=== PATIENT | female | born 1995 | race Caucasian/White ===

== ENCOUNTER 2018-07-08 10:34 | Emergency (ER) | payer MEDICAID ==
[~2018-07-08] VITALS: Ht 1571.9 cm; Wt 75.0 kg
[2018-07-08] MEDS ORDERED: dexamethasone sod phosphate 10mg/ml inj IV STA (11:29)
[2018-07-08] MEDS ORDERED: normal saline 1000ML IV soln IVB ONE ×3 (11:30→13:15)
[2018-07-08] MEDS ORDERED: diphenhydrAMINE 50 mg/ml inj IV ONE (11:30)
[2018-07-08] MEDS ORDERED: metoclopramide 5 mg/ml inj IV ONE (11:30)
[2018-07-08 12:21] LABS: BASOPHILS # (AUTO) 0.2 X10'3 (0-0.2); BASOPHILS % (AUTO) 2.7 % (0-1); EOSINOPHILS # (AUTO) 0.3 X10'3 (0-0.9); EOSINOPHILS % (AUTO) 4.2 % (0-6); HEMOGLOBIN 14.7 g/dl (12.0-16.0); LYMPHOCYTES # (AUTO) 0.4 X10'3 (1.1-4.8); LYMPHOCYTES % (AUTO) 5.9 % (21-51); MEAN CORPUSCULAR HEMOGLOBIN 32.6 PG (27.0-31.0); MEAN CORPUSCULAR HGB CONC 34.3 % (33.0-36.5); MEAN CORPUSCULAR VOLUME 95.1 FL (78-98); MEAN PLATELET VOLUME 9.3 FL (7.4-10.4); MONOCYTES # (AUTO) 0.7 X10'3 (0-0.9); MONOCYTES % (AUTO) 11.1 % (2-12); NEUTROPHILS # (AUTO) 4.5 X10'3 (1.8-7.7); NEUTROPHILS % (AUTO) 76.1 % (42-75); PLATELET COUNT 106 X10'3 (140-440); RED BLOOD COUNT 4.52 X10'6 (4.20-5.60); RED CELL DISTRIBUTION WIDTH 13.9 % (11.5-14.5)
[2018-07-08] MEDS ORDERED: LORazepam 2 mg/ml vial IV ONE (12:30)
[2018-07-08 12:36] LABS: ALANINE AMINOTRANSFERASE 62 U/L (12-78); ALBUMIN 4.3 G/DL (3.4-5.0); ALBUMIN/GLOBULIN RATIO 1.5 (1.1-1.5); ALKALINE PHOSPHATASE 68 IU/L (46-116); ANION GAP 7 (8-16); ASPARTATE AMINO TRANSFERASE 43 U/L (10-37); BILIRUBIN,TOTAL 0.5 MG/DL (0.1-1.0); BLOOD UREA NITROGEN 16 MG/DL (7-18); BUN/CREATININE RATIO 19.5 (6.6-38.0); CALCIUM 9.2 MG/DL (8.5-10.1); CHLORIDE 102 MMOL/L (99-107); CREATININE 0.82 MG/DL (0.40-0.90); GLUCOSE 78 MG/DL (70-104); LIPASE 108 U/L (73-393); POTASSIUM 3.4 MMOL/L (3.5-5.1); SODIUM 139 MMOL/L (135-145); TOTAL PROTEIN 7.1 G/DL (6.4-8.2); eGFR 87 ML/MIN
[2018-07-08 13:59] LABS: CLARITY,URINE SLIGHTLY CLOUDY (Clear); COLOR,URINE YELLOW (Yellow); GLUCOSE, URINE NEGATIVE (Neg); KETONES,URINE 15 mg/dl (Neg); LEUKOCYTE ESTERASE ,URINE NEGATIVE (Neg); NITRITES, URINE NEGATIVE (Neg); OCCULT BLOOD,URINE NEGATIVE (Neg); PROTEIN,URINE NEGATIVE (Neg); UROBILINOGEN,URINE 0.2 E.U/dL (0.2-1.0)
[2018-07-08 14:01] LABS: UA COLLECTION TYPE CLN CATCH MIDSTREAM
[2018-07-08 14:15] LABS: BACTERIA,URINE FEW /HPF (Neg); RBC,URINE NONE SEEN /HPF (0-2); SQUAMOUS EPITHELIAL CELL,UR MODERATE /LPF (FEW); WBC,URINE 0-4 /HPF (0-4)
[2018-07-08 14:53] VITALS: BP 122/73
== END 2018-07-08 14:56 | disposition home or self-care (01) ==
LOC: ER 10:34
DX: E86.0 Dehydration (principal); R11.2 Nausea with vomiting, unspecified; Z88.2 Allergy status to sulfonamides; Z88.1 Allergy status to other antibiotic agents
CPT/HCPCS: 36415; 71045; 80053; 81001; 82948; 83690; 85025; 96361; 96374; 96375; 99285; J1100; J1200; J2765; J7030

== ENCOUNTER 2018-11-11 12:19 | Emergency (ER) | payer MEDICAID ==
[~2018-11-11] VITALS: Ht 160 cm; Wt 75.0 kg
[2018-11-11 12:45] LABS: BASOPHILS % (AUTO) 0 % (0-1); EOSINOPHILS # (AUTO) 0.1 X10'3 (0-0.9); EOSINOPHILS % (AUTO) 1.4 % (0-6); HEMATOCRIT 42.7 % (35.0-45.0); HEMOGLOBIN 14.6 g/dl (12.0-16.0); LYMPHOCYTES # (AUTO) 0.2 X10'3 (1.1-4.8); LYMPHOCYTES % (AUTO) 3.8 % (21-51); MEAN CORPUSCULAR HEMOGLOBIN 34.1 PG (27.0-31.0); MEAN CORPUSCULAR HGB CONC 34.1 % (33.0-36.5); MEAN CORPUSCULAR VOLUME 99.8 FL (78-98); MEAN PLATELET VOLUME 8.9 FL (7.4-10.4); MONOCYTES # (AUTO) 0.4 X10'3 (0-0.9); MONOCYTES % (AUTO) 8.5 % (2-12); NEUTROPHILS % (AUTO) 86.3 % (42-75); PLATELET COUNT 116 X10'3 (140-440); RED BLOOD COUNT 4.27 X10'6 (4.20-5.60); RED CELL DISTRIBUTION WIDTH 14.6 % (11.5-14.5); WHITE BLOOD COUNT 4.6 X10'3 (4.5-11.0)
[2018-11-11 13:00] LABS: ALANINE AMINOTRANSFERASE 64 U/L (12-78); ALBUMIN 4.5 G/DL (3.4-5.0); ALBUMIN/GLOBULIN RATIO 1.6 (1.1-1.5); ALKALINE PHOSPHATASE 63 IU/L (46-116); ANION GAP 13 (8-16); ASPARTATE AMINO TRANSFERASE 59 U/L (10-37); BILIRUBIN,TOTAL 0.5 MG/DL (0.1-1.0); BLOOD UREA NITROGEN 12 MG/DL (7-18); BUN/CREATININE RATIO 14.5 (6.6-38.0); CALCIUM 9.3 MG/DL (8.5-10.1); CHLORIDE 101 MMOL/L (99-107); CREATININE 0.83 MG/DL (0.40-0.90); GLUCOSE 96 MG/DL (70-104); INR 1.1 INR; PARTIAL THROMBOPLASTIN TIME 23 SECONDS (22-32); POTASSIUM 3.3 MMOL/L (3.5-5.1); PROTHROMBIN TIME 10.7 SECONDS (9.0-12.0); SODIUM 142 MMOL/L (135-145); TOTAL CARBON DIOXIDE 28.4 MMOL/L (24-32); TOTAL PROTEIN 7.4 G/DL (6.4-8.2); eGFR 85 ML/MIN
[2018-11-11] MEDS ORDERED: ondansetron 4mg rapidly disintigrating tab PO ONE (13:30)
[2018-11-11 14:06] VITALS: BP 112/67
== END 2018-11-11 14:05 | disposition home or self-care (01) ==
LOC: ER 12:20
DX: M32.9 Systemic lupus erythematosus, unspecified (principal); Z88.2 Allergy status to sulfonamides; Z88.8 Allergy status to other drugs, medicaments and biological substances
CPT/HCPCS: 36415; 71045; 80053; 84484; 85025; 85610; 85730; 93005; 99284

== ENCOUNTER 2019-09-25 10:09 | Emergency (ER) | payer MEDICAID ==
[~2019-09-25] VITALS: Ht 160 cm; Wt 74.5 kg
[2019-09-25 10:15] VITALS: BP 125/80
[2019-09-25 10:56] LABS: BASOPHILS % (AUTO) 0.9 % (0-1); EOSINOPHILS # (AUTO) 0.1 X10'3 (0-0.9); EOSINOPHILS % (AUTO) 2.7 % (0-6); HEMATOCRIT 41.3 % (35.0-45.0); LYMPHOCYTES # (AUTO) 0.3 X10'3 (1.1-4.8); LYMPHOCYTES % (AUTO) 10.2 % (21-51); MEAN CORPUSCULAR HGB CONC 33.9 g/dL (33.0-36.5); MEAN CORPUSCULAR VOLUME 103.3 FL (78-98); MEAN PLATELET VOLUME 9.4 FL (7.4-10.4); MONOCYTES # (AUTO) 0.3 X10'3 (0-0.9); MONOCYTES % (AUTO) 10.9 % (2-12); NEUTROPHILS # (AUTO) 2.1 X10'3 (1.8-7.7); NEUTROPHILS % (AUTO) 75.3 % (42-75); PLATELET COUNT 109 X10'3 (140-440); RED CELL DISTRIBUTION WIDTH 13.3 % (11.5-14.5); WHITE BLOOD COUNT 2.8 X10'3 (4.5-11.0)
[2019-09-25 11:11] LABS: ALANINE AMINOTRANSFERASE 46 U/L (12-78); ALBUMIN 4.2 G/DL (3.4-5.0); ALBUMIN/GLOBULIN RATIO 1.4 (1.1-1.5); ALKALINE PHOSPHATASE 58 IU/L (46-116); ANION GAP 6 (8-16); ASPARTATE AMINO TRANSFERASE 36 U/L (10-37); BILIRUBIN,TOTAL 0.3 MG/DL (0.1-1.0); BLOOD UREA NITROGEN 12 MG/DL (7-18); BUN/CREATININE RATIO 18.2 (6.6-38.0); CALCIUM 9.4 MG/DL (8.5-10.1); CHLORIDE 104 MMOL/L (99-107); CREATININE 0.66 MG/DL (0.40-0.90); GLUCOSE 89 MG/DL (70-104); POTASSIUM 4.2 MMOL/L (3.5-5.1); SODIUM 141 MMOL/L (135-145); TOTAL CARBON DIOXIDE 31.4 MMOL/L (24-32); TOTAL PROTEIN 7.2 G/DL (6.4-8.2); eGFR > 90 ML/MIN
[2019-09-25] MEDS ORDERED: normal saline 1000ml 1,000 ML IV ONE (11:15)
[2019-09-25] MEDS ORDERED: diphenhydrAMINE 50 mg/ml inj IV ONE (11:15)
[2019-09-25] MEDS ORDERED: metoclopramide 5 mg/ml inj IV ONE (11:15)
[2019-09-25 11:17] LABS: TOTAL CELLS COUNTED 100
[2019-09-25 11:19] LABS: ELLIPTOCYTES 1+; PLATELET ESTIMATE DECREASED; POLYCHROMASIA FEW; STOMATOCYTES FEW; TEAR DROP CELLS FEW
[2019-09-25 11:46] LABS: CLARITY,URINE SLIGHTLY CLOUDY (Clear); COLOR,URINE YELLOW (Yellow); GLUCOSE, URINE NEGATIVE (Neg); KETONES,URINE NEGATIVE (Neg); LEUKOCYTE ESTERASE ,URINE NEGATIVE (Neg); NITRITES, URINE NEGATIVE (Neg); OCCULT BLOOD,URINE NEGATIVE (Neg); PROTEIN,URINE NEGATIVE (Neg); UROBILINOGEN,URINE 0.2 E.U/dL (0.2-1.0)
[2019-09-25 11:53] LABS: URINE HCG NEGATIVE (NEG)
[2019-09-25 11:56] LABS: UA COLLECTION TYPE CLN CATCH MIDSTREAM
[2019-09-25 12:00] LABS: MUCUS STRANDS FEW /LPF (Neg); SQUAMOUS EPITHELIAL CELL,UR MODERATE /LPF (FEW)
[2019-09-25 12:02] LABS: BACTERIA,URINE FEW /HPF (Neg); TRANSITIONAL EPI CELLS,URINE FEW /HPF; WBC,URINE 0-4 /HPF (0-4)
[2019-09-25 12:03] LABS: RBC,URINE NONE SEEN /HPF (0-2)
[2019-09-25] MEDS ORDERED: DOXY1TAB3 PO (12:12)
== END 2019-09-25 12:41 | disposition home or self-care (01) ==
LOC: ER 10:10
DX: R42 Dizziness and giddiness (principal); R11.0 Nausea; E03.9 Hypothyroidism, unspecified; F12.90 Cannabis use, unspecified, uncomplicated; Z98.890 Other specified postprocedural states; Z88.2 Allergy status to sulfonamides; Z88.1 Allergy status to other antibiotic agents; Z79.899 Other long term (current) drug therapy
CPT/HCPCS: 36415; 71045; 80053; 81001; 81025; 82948; 85025; 96374; 96375; 99284; J1200; J2765; J7030

== ENCOUNTER 2021-09-12 19:45 | Emergency (ER) | payer MEDICAID ==
[~2021-09-12] VITALS: Ht 162.6 cm; Wt 86.0 kg
[~2021-09-12 19:45] MED LIST: DOXY1TAB3 PO
[2021-09-12] MEDS ORDERED: HYDROcodone/acetaminophen 10/325mg tab PO ONE (22:40)
[2021-09-12] MEDS ORDERED: CLIN-117 PO (23:20)
[2021-09-12 23:34] VITALS: BP 121/86
== END 2021-09-12 23:36 | disposition home or self-care (01) ==
LOC: ER 19:47
DX: K04.7 Periapical abscess without sinus (principal); F12.10 Cannabis abuse, uncomplicated; Z88.2 Allergy status to sulfonamides; Z79.899 Other long term (current) drug therapy
CPT/HCPCS: 82948; 99283

== ENCOUNTER 2024-09-13 09:51 | Emergency (ER) | payer MEDICAID ==
[~2024-09-13] VITALS: Ht 162.6 cm; Wt 86.4 kg
[2024-09-13 09:59] VITALS: BP 126/88; PULSE 110; RESP 18; TEMP 98.5; O2SAT 99
[2024-09-13] MEDS: ondansetron 4mg rapidly disintigrating tab PO ONE (10:46)
[2024-09-13] MEDS: proCHLORperazine 10 MG/2 ml inj IM ONE (12:00)
[2024-09-13] MEDS: diphenhydrAMINE 50 mg/ml inj IM ONE (12:01)
[2024-09-13] MEDS ORDERED: AMOX-117 PO (12:40)
[2024-09-13] MEDS ORDERED: PROM25TA14 PO (12:40)
== END 2024-09-13 13:05 | disposition home or self-care (01) ==
LOC: ER 09:51
DX: K04.7 Periapical abscess without sinus (principal); R11.2 Nausea with vomiting, unspecified; E03.9 Hypothyroidism, unspecified; F12.90 Cannabis use, unspecified, uncomplicated; Z88.2 Allergy status to sulfonamides; Z88.1 Allergy status to other antibiotic agents; Z79.899 Other long term (current) drug therapy
CPT/HCPCS: 82948; 96372; 99284; J0780; J1200